=== PATIENT | female | born 1960 | race Caucasian/White ===

== ENCOUNTER 2017-06-08 06:37 | Day surgery (SDC) | payer OTHER ==
[~2017-06-08] VITALS: Ht 160 cm; Wt 82.5 kg
[~2017-06-08 06:37] MED LIST: CALCIUM 600 +1 EACH PO; DICYCLOMINE HCL20 MG PO; LEVOTHYROXINE112 MCG PO; MELATONIN1 MG PO; METOPROLOL SUCC25 MG PO; OSTEO BI-FLEX1 EAC2 PO; PROBIOTIC1 EAC1 PO; VITAMIN D31000 UNIT PO; [UNRECOGNIZED DRUG - OTHER] PO
--- NOTE | 2017-06-08 07:58 | NUR ---
06/08/17 0758 Gege Denise PT O2 SAT 98, TURN OFF O2
--- NOTE | 2017-06-08 10:13 | NUR ---
PT SUPPORTED BY HER . ROUTINE SCOPE, SEEMED TO DEAL WITH PREP APPROPRIATELY. SCHEDULING TIMES HAVE BEEN AN ISSUE TODAY. SURG STAFF IN TO TAKE PT. EXTENDED A BLESSING
--- NOTE | 2017-06-10 19:54 | OR ---
[facility] [address], [place] [address] Signed DATE OF PROCEDURE: 06/08/17 PREOPERATIVE DIAGNOSES Personal history of colonic polyps (2011). Diverticulosis. POSTOPERATIVE DIAGNOSES Minimal internal hemorrhoids. Minimal diverticulosis. PROCEDURE: Colonoscopy without biopsy. ESTIMATED BLOOD LOSS: None. INDICATIONS Jyoti is a 57-year-old female, who had colonic polyps removed back in 2011 at the age of 52. She also has some very early sigmoid diverticulosis. She returns now for followup colonoscopy. She has no lower GI complaints. There is no family history of colon cancer or polyps. In the office, I gave her a pamphlet on colonoscopy and we discussed the nature of the test along with the risks including, but not limited to gas bloating, crampy abdominal pain, bleeding perforation requiring surgery, and missed diagnosis. We also discussed the need for IV conscious sedation. She had expressed understanding and wished to proceed. PROCEDURE NOTE Jyoti was taken into our endoscopy suite and placed in the left lateral decubitus position. She was given divided doses of 7 mg of Versed and 150 mcg of Fentanyl. A digital rectal exam was performed and this was unremarkable. The adult colonoscope was introduced and advanced all around into the cecum under direct visualization of camera without difficulty. Her prep was quite ecellent. The scope was then slowly withdrawn. She had some very shallow tiny diverticula in the sigmoid colon. The rectum was unremarkable. Upon retroflexion of scope, she had small internal hemorrhoid columns. After this, the gas was suctioned out. The colonoscope removed. Jyoti tolerated the procedure quite well. RECOMMENDATIONS I will see Jyoti back in my office in 5 years for repeat colonoscopy. Electronically Signed By: CORRY EID MD 06/10/171953 PATIENT NAME: JYOTI SHEETS OPERATIVE REPORT DATE OF : 64 PHYSICIAN: CORRY EID MD REPORT #: [id number] REPORT IS CONFIDENTIAL AND NOT TO BE RELEASED WITHOUT AUTHORIZATION [address] [address] Signed MD DANNY Odonnell/Modl /[id number] cc: Lex Chavez DO Electronically Signed By: CORRY EID MD 06/10/17 1954 PATIENT NAME: JYOTI SHEETS OPERATIVE REPORT DATE OF : 64 PHYSICIAN: CORRY EID MD REPORT #: [id number] REPORT IS CONFIDENTIAL AND NOT TO BE RELEASED WITHOUT AUTHORIZATION
== END 2017-06-08 08:28 | disposition home or self-care (01) ==
LOC: DS 06:37 → OPS 06:37 → DS 06:45 → OPS 06:45
PROVIDERS: Colon & Rectal Surgery
PROC: 0DJD8ZZ Inspection of Lower Intestinal Tract, Via Natural or Artificial Opening Endoscopic (ICD-10-PCS; principal; 2017-06-08 06:45)
DX: K57.30 Diverticulosis of large intestine without perforation or abscess without bleeding (principal); K64.8 Other hemorrhoids; G47.33 Obstructive sleep apnea (adult) (pediatric); E78.5 Hyperlipidemia, unspecified; E66.9 Obesity, unspecified; E03.9 Hypothyroidism, unspecified; M19.90 Unspecified osteoarthritis, unspecified site; Z98.818 Other dental procedure status; Z86.010 Personal history of colon polyps; Z90.89 Acquired absence of other organs; Z87.891 Personal history of nicotine dependence; Z91.030 Bee allergy status; Z79.899 Other long term (current) drug therapy; Z68.32 Body mass index [BMI] 32.0-32.9, adult
CPT/HCPCS: 99152; 99153; J2250; J3010; J7120

== ENCOUNTER 2021-01-31 13:01 | Emergency (ER) | payer OTHER ==
[~2021-01-31] VITALS: Ht 160 cm; Wt 82.5 kg
[2021-01-31] MEDS ORDERED: HYDROCODON-ACE1 EA11 PO (14:20)
== END 2021-01-31 15:30 | disposition home or self-care (01) ==
LOC: ED 13:01
DX: S39.011A Strain of muscle, fascia and tendon of abdomen, initial encounter (principal); S29.9XXA Unspecified injury of thorax, initial encounter; W10.9XXA Fall (on) (from) unspecified stairs and steps, initial encounter; Z79.899 Other long term (current) drug therapy
CPT/HCPCS: 71101; 72170; 99283-25; A9270

== ENCOUNTER 2021-10-08 09:00 | Day surgery (SDC) | payer OTHER ==
[~2021-10-08] VITALS: Ht 160 cm; Wt 75.0 kg
--- NOTE | ~2021-10-08 | OR ---
[facility] [address] [place], [place] [address] Draft DATE OF OPERATION: 10/08/2021 SURGEON: Corry Eid MD PREOPERATIVE DIAGNOSES: 1. Chronic cholecystitis. 2. Biliary colic. POSTOPERATIVE DIAGNOSES: 1. Chronic cholecystitis. 2. Biliary colic. 3. Goiw-og-rcpvfpqg cholesterolosis. PROCEDURE: Laparoscopic cholecystectomy without intraoperative cholangiogram. ESTIMATED BLOOD LOSS: None. FINDINGS: We were unable to pass the cholangiocatheter through the valves of Heister. Therefore, the intraoperative cholangiogram was not performed. With the gallbladder open, she appears to have ddbi-qh-deonjjza cholesterolosis. INDICATIONS: Jyoti is a 61-year-old female, who was asked to see me for her gallbladder symptoms. Her daughter happens to be one of our operating room nurses. Her daughter had very similar symptoms and ended up with a low ejection fraction of the gallbladder. Her daughter had the gallbladder removed and she feels much better. Therefore, Jyoti recognized her symptoms as the same. She had been to her primary care provider. She was having the belt-like epigastric abdominal pain. Her ultrasound in April of this year was unremarkable. The HIDA scan showed her gallbladder ejection fraction low at 19%. She did not feel like drinking the Ensure reproduced her symptoms. However, she told me her symptoms are intermittent. That is actually quite common with the gallbladder. In the office, I gave her a booklet on the gallbladder. We discussed the location and function of the gallbladder in detail. We discussed laparoscopic versus open cholecystectomy. She understands expected intraop and postop course. There is risk including, but not limited to bleeding, infection, scarring, change in contour of the skin, damage to bowel, damage to main bile duct, incisional hernias and other unforeseen comorbidities. She had expressed understanding and wished to proceed. PATIENT NAME: JYOTI SHEETS OPERATIVE REPORT DATE OF : 64 REPORT #: [id number] PHYSICIAN: CORRY EID MD PCP: LISA SMITH MD REPORT IS CONFIDENTIAL AND NOT TO BE RELEASED WITHOUT AUTHORIZATION [facility] [address] [place], [place] [address] Draft PROCEDURE NOTE: I met with Jyoti and her daughter, Tammie in our preop area. After answering their questions, we took Jyoti back to the operating room. She was placed in the supine position under general endotracheal tube anesthesia. She was given preoperative antibiotics along with subcutaneous heparin. SCDs were utilized. She was then prepped and draped in the usual sterile fashion. All trocars were placed in their usual positions under direct visualization of the camera without difficulty. The gallbladder was grasped and elevated in the right upper quadrant. We took pictures throughout for photodocumentation. The triangle of Calot was dissected free and a clip was placed across the cystic artery and it was divided. We made two separate cuts through the cystic duct and we still could not get past the valves of Heister with our intraoperative cholangiocatheter. Given that, we abandoned our intraoperative cholangiogram. The cystic duct stump was secured with two clips across the cystic duct. The gallbladder was then removed from the gallbladder fossa with the help of the cautery and placed into an EndoCatch bag. We used our laparoscopic suturing device to pass 0-Vicryl suture on either side of the fascia of the subxiphoid trocar site. This was tied down to close this fascia primarily. After this, all the gas was allowed to escape and all the trocars were removed along with the gallbladder. Our circulating nurse opened the gallbladder on the back table for photodocumentation. She appears to have odhl-tg-xbodpfbk cholesterolosis. We closed the fascia of the supraumbilical trocar site with okvybq-qd-cfero and simple interrupted 0-Vicryl sutures. Local anesthetic was injected into all trocar sites. Each trocar site was irrigated and suctioned out until clear. The skin and dermis of each trocar site were closed with interrupted 3-0 subcuticular Monocryl sutures. Dry gauze and tape were applied all incisions. Jyoti was awakened from her anesthesia, extubated in the OR, and taken to recovery room in stable condition. Corry Eid MD ALB/MODL /[id number] cc: MD Corry Farfan MD PATIENT NAME: JYOTI SHEETS OPERATIVE REPORT DATE OF : 64 REPORT #: [id number] PHYSICIAN: CORRY EID MD PCP: LISA SMITH MD REPORT IS CONFIDENTIAL AND NOT TO BE RELEASED WITHOUT AUTHORIZATION [address] [address] Draft Copies: LISA SMITH MD, ANDREW L MD ~ PATIENT NAME: JYOTI SHEETS OPERATIVE REPORT DATE OF : 64 REPORT #: [id number] PHYSICIAN: CORRY EID MD PCP: LISA SMITH MD REPORT IS CONFIDENTIAL AND NOT TO BE RELEASED WITHOUT AUTHORIZATION
[~2021-10-08 09:00] MED LIST changes: +HYDROCODON-ACE1 EA11 PO; +LEVOTHYROXINE88 MC1 PO
[2021-10-08] MEDS ORDERED: CALCIUM500 MG PO (09:18)
[2021-10-08] MEDS ORDERED: ZINC30 MG PO (09:19)
--- NOTE | 2021-10-08 11:22 | NUR ---
10/08/21 [address] PATIENT ARRIVES TO PACU UNRESPONSIVE TO PAIN, ORAL AIRWAY IN PLACE. RESP EVEN AND UNLABORED, MASK AT 6 LITERS.
--- NOTE | 2021-10-08 12:01 | NUR ---
PT ARRIVES TO DS RM 2 FROM PACU AWAKE AND ALERT. PT RATES PAIN 2/10 AND STATES "SLIGHT" NAUSEA WHEN ASKED; PT MEDICATED, SEE EMAR. PT TOLERATES WATER AND IS PROVIDED JELLO AND CRACKERS. PT DAUGHTER IN ROOM AT BEDSIDE ON ARRIVAL. ELAINA NEFTALIGGER PLACED ON WARM AND WARM BLANKETS PROVIDED PER PT REQUEST. DC CRITERIA EXPLAINED TO PT, CALL LIGHT WITHIN REACH.
--- NOTE | 2021-10-08 13:03 | NUR ---
PT ICED WATER REFILLED AND PROVIDED LEMON LITTLE TRAVERSE SODA PER REQUEST. GRILLED CHEESE ORDERED FROM KITCHEN. ICE PACK REFILLED AND PLACED OVER LAP SITES. PT STATES PAIN IS TOLERABLE AND ENCOURAGED TO USE CALL LIGHT WITH URGE TO VOID/ANY NEEDS.
[2021-10-08] MEDS ORDERED: HYDROCODON-ACE1 EAC8 PO (13:25)
--- NOTE | 2021-10-08 13:47 | NUR ---
ICED WATER REFILLED. PT DENIES URGE TO VOID AT THIS TIME. DAUGHTER AT BEDSIDE WATCHING TV WITH PATIENT. CALL LIGHT WITHIN REACH.
--- NOTE | 2021-10-08 14:07 | NUR ---
PT USES CALL LIGHT TO ALERT DS STAFF OF URGE TO VOID. PT SITS AT SIDE OF BED PRIOR TO STANDING, DENIES DIZZINESS OR NAUSEA. PT AMBULATES TO BATHROOM STEADY WITH RN ASSIST. PT ABLE TO VOID APPROX 150 MLS YELLOW URINE WITH NO PROBLEMS. PT BACK TO DS RM 2 AND WOULD LIKE TO GET DRESSED TO DC HOME. DAUGHTER, [place] IN ROOM TO ASSIST PT IF NEEDED. PT ENCOURAGED TO OPEN CURTAIN WHEN READY.
--- NOTE | 2021-10-08 14:53 | NUR ---
1425: DC INSTRUCTIONS PRESENTED TO PT AND DAUGHTER AT BEDSIDE. PT VERBALIZES AN UNDERSTANDING OF INSTRUCTIONS. DAUGHTER HAS HARD COPY OF PAIN PRESCRIPTION TO DROP OFF AT PHARMACY. PT ABLE TO AMBULATE FROM STRETCHER TO WC WITH NO PROBLEMS. PT DC VIA WC FROM DS RM 2 TO HOME WITH DAUGHTER SAFE RIDE HOME.
== END 2021-10-08 14:34 | disposition home or self-care (01) ==
LOC: DS 09:00
PROVIDERS: ATTEND Colon & Rectal Surgery
PROC: 0FT44ZZ Resection of Gallbladder, Percutaneous Endoscopic Approach (ICD-10-PCS; principal; 2021-10-08 09:45)
DX: K80.44 Calculus of bile duct with chronic cholecystitis without obstruction (principal); E78.5 Hyperlipidemia, unspecified; E66.9 Obesity, unspecified; Z68.29 Body mass index [BMI] 29.0-29.9, adult; Z87.891 Personal history of nicotine dependence; E03.9 Hypothyroidism, unspecified; Z90.5 Acquired absence of kidney
CPT/HCPCS: 00790; J0690; J1100; J1644; J1885; J2001; J2250; J2405; J2704; J3010; J7121

== ENCOUNTER 2022-11-10 07:57 | Day surgery (SDC) | payer OTHER ==
[~2022-11-10] VITALS: Ht 160 cm; Wt 70.3 kg
[~2022-11-10 07:57] MED LIST changes: +CALCIUM500 MG PO; +FIBER-STAT15 GM/30 M PO; +HYDROCODON-ACE1 EAC8 PO; +VITAMIN C500 M1 PO; +ZINC30 MG PO
[2022-11-10] MEDS ORDERED: PROBIOTIC1 EAC5 PO (08:17)
--- NOTE | 2022-11-10 10:17 | NUR ---
11/10/22 [address] PATIENT ARRIVES TO PACU RESTING WITH EYES CLOSED. OPENS EYES WITH VERBAL STIMULI, THEN BACK TO SLEEP. RESP EVEN AND UNLABORED, NC AT 2 LITERS. 1010 PATIENT SLEEPING. AWAKENS WITH VERBAL STIMULI. BACK TO SLEEP WHEN NOT STIMULATED. RESP EVEN AND UNLABORED, OXYGEN OFF. ROOM AIR SATS >97%. PATIENT PASSING GAS.
--- NOTE | 2022-11-11 06:35 | OR ---
[facility] [address] [place], [place] [address] Signed DATE OF OPERATION: 11/10/2022 SURGEON: Corry Eid MD PREOPERATIVE DIAGNOSES: 1. Personal history of colonic polyps in 2012 at age 52. 2. Diverticulosis. 3. Internal hemorrhoids. 4. Irritable bowel syndrome with diarrhea. POSTOPERATIVE DIAGNOSES: 1. Tortuous rectosigmoid junction. 2. Minimal sigmoid diverticulosis. 3. Minimal internal hemorrhoids. PROCEDURE: Colonoscopy without biopsy. ESTIMATED BLOOD LOSS: None. INDICATIONS: Jyoti is a 62-year-old female, asked to see me for a followup colonoscopy. She said her brother had some type of defect in his colon that finally showed up at age 55 back in 2007. It apparently was shaped like a football. Dr. Wei had to perform a colectomy to correct it. She seems to have done well since then. She is not sure of any more details than that. Even her brother is not sure. Jyoti had adenomatous polyps back in 2011 at the age of 52. She has also had hyperplastic polyps and a small amount of diverticulosis. She is known to have some internal hemorrhoids. She comes every five years. She returned in 2017 at age of 57 and again had some internal hemorrhoids with her diverticulosis. No polyps at that time. She has always done well with Versed and fentanyl in the past. Again, she stays on the five year plan. She also has a long history of irritable bowel syndrome with diarrhea. She had been asked to come back and see me for followup. In the meantime, she had a robotic assisted laparoscopic right partial nephrectomy at our [facility] back in 2019. In the office, I had given her a pamphlet on colonoscopy. We reviewed the nature of the test. There is risk including, but not limited to gas bloating, crampy abdominal pain, bleeding, perforation requiring surgery, and missed diagnosis. We also reviewed the need for the IV conscious sedation. She had expressed understanding and wished to proceed. Electronically Signed By: CORRY EID MD 11/11/22 0635 PATIENT NAME: JYOTI SHEETS OPERATIVE REPORT DATE OF : 64 REPORT #: [id number] PHYSICIAN: CORRY EID MD PCP: LISA SMITH MD REPORT IS CONFIDENTIAL AND NOT TO BE RELEASED WITHOUT AUTHORIZATION [facility] [address] [place] [id number] Signed DESCRIPTION OF PROCEDURE: Jyoti was taken into our endoscopy suite and placed in the left lateral decubitus position. She was given 9 mg of Versed and 150 mcg of fentanyl to cover the case. We found that she had a very tortuous angulated rectosigmoid junction on this occasion. She was quite diaphoretic and bradycardic on several occasions as we tried to manipulate the camera through this area. We even made the decision to try to find an anesthesia provider to help with propofol infusion. During that time, we were able to finally get the camera under direct visualization around the rectosigmoid junction and up into the sigmoid colon. After that, the camera passed quite nicely. Her prep was quite excellent. We could easily see the appendiceal orifice and the ileocecal valve. The scope was then slowly withdrawn. We took pictures throughout for photodocumentation. There were no polyps. Again, she has diverticulosis in the sigmoid colon. They were small in size, few in number, and scattered about. As we came through the rectosigmoid junction, again we can see as angulated. We made our way into the rectum, which was unremarkable. Upon retroflexion of the scope, we can see her minimal internal hemorrhoids. After this, the gas was suctioned out and the colonoscope removed. Overall, Jyoti tolerated the procedure once we got through the rectosigmoid junction. RECOMMENDATIONS: Jyoti can follow up in 5 years for repeat colonoscopy. She is really in need of monitored anesthesia care with propofol given her very difficult rectosigmoid junction and the fact that she was diaphoretic and bradycardic. One will have to be very careful in this area as Jyoti gets older and her colon gets thinner. She could always consider stool studies in the future along with a barium enema as well. Corry Eid MD ALB/MODL /[id number] cc: MD Corry Farfan MD Electronically Signed By: CORRY EID MD 11/11/22 0635 PATIENT NAME: JYOTI SHEETS OPERATIVE REPORT DATE OF : 64 REPORT #: [id number] PHYSICIAN: CORRY EID MD PCP: LISA SMITH MD REPORT IS CONFIDENTIAL AND NOT TO BE RELEASED WITHOUT AUTHORIZATION [address] [address] Signed Copies: LISA SMITH MD, ANDREW L MD ~ Electronically Signed By: CORRY EID MD 11/11/22 0635 PATIENT NAME: JYOTI SHEETS OPERATIVE REPORT DATE OF : 64 REPORT #: [id number] PHYSICIAN: CORRY EID MD PCP: LISA SMITH MD REPORT IS CONFIDENTIAL AND NOT TO BE RELEASED WITHOUT AUTHORIZATION
== END 2022-11-10 11:00 | disposition home or self-care (01) ==
LOC: DS 07:57 → OPS 07:57 → DS 09:45 → OPS 11:00
PROVIDERS: ATTEND Colon & Rectal Surgery
PROC: 0DJD8ZZ Inspection of Lower Intestinal Tract, Via Natural or Artificial Opening Endoscopic (ICD-10-PCS; principal; 2022-11-10 09:45)
DX: Z12.11 Encounter for screening for malignant neoplasm of colon (principal); K57.30 Diverticulosis of large intestine without perforation or abscess without bleeding; K64.0 First degree hemorrhoids; K58.9 Irritable bowel syndrome, unspecified; F12.10 Cannabis abuse, uncomplicated; E78.5 Hyperlipidemia, unspecified; E03.9 Hypothyroidism, unspecified; Z86.010 Personal history of colon polyps; Z87.891 Personal history of nicotine dependence; Z79.899 Other long term (current) drug therapy
CPT/HCPCS: G0121; 99153; G0500; J0690; J2250; J3010; J7121

== ENCOUNTER 2022-11-25 07:10 | Day surgery (SDC) | payer OTHER ==
[~2022-11-25] VITALS: Ht 160 cm; Wt 68.2 kg
[~2022-11-25 07:10] MED LIST changes: +PROBIOTIC1 EAC5 PO
[2022-11-25] MEDS ORDERED: TYLENOL325 M1 PO (07:24)
--- NOTE | 2022-11-25 10:28 | NUR ---
PT ALERT, ORIENTED AND SUPPORTED BY HER FIOR. PT IS SOMEWHAT ANXIOUS. ANESTHESIA IS A PROBLEM FOR PT. GAVE ENCOURAGEMENT, FIOR WILL REMAIN FOR DC. PT REQUESTED PRAYER, WILL FOLLOW
[2022-11-25] MEDS ORDERED: TRAMADOL HCL50 MG PO (10:35)
--- NOTE | 2022-11-25 10:37 | NUR ---
11/25/22 Chioma Muse2- PT ARRIVES TO PACU AWAKE AND TALKING. PT REPORTS NO PAIN OR NAUSEA. RESP EVEN AND UNLABORED. OXYGEN SAT MID TO HIGH 90'S ON RA. PT'S RIGHT HAND/ WRIST ELEVATED AND ICE PACK APPLIED WITH BARRIER BETWEEN SKIN AND ICE PACK.
--- NOTE | 2022-11-28 08:42 | OR ---
[facility] [address] [place], [place] [address] Signed DATE OF OPERATION: 11/25/2022 SURGEON: Agustina Self MD PREOPERATIVE DIAGNOSIS: Carpal tunnel syndrome, right. POSTOPERATIVE DIAGNOSIS: Carpal tunnel syndrome, right. PROCEDURE PERFORMED: Carpal tunnel release, right. RECORD SYSTEMS ANALYST: None. ANESTHESIA: Vandana block. TOURNIQUET TIME: 14 minutes. BRIEF HISTORY: Jyoti is a 62-year-old female with progressive worsening of pain and numbness in her hand. Nerve conduction studies were consistent with moderate carpal tunnel. Risks and benefits of operative treatment were discussed with her and she elected to proceed. PROCEDURE IN DETAIL: Once consent was obtained, she was taken to the operating room. After adequate anesthesia, she was left on day surgery bed with the hand table. The arm was prepped and draped in a standard sterile fashion. The carpal tunnel was approached through a 1.5 cm incision in the distal wrist crease. This was carried through the skin and subcutaneous tissue. The palmaris longus was identified and was quite thin. It was then mobilized. The transverse carpal ligament was identified under loupe magnification and was released proximally a cm and distally to the distal extent under direct vision. The canal was then palpated using a Nemacolin and found to be completely released. The wound was copiously irrigated with normal saline, closed with 3-0 nylon and injected with 7 mL of plain 0.25% Marcaine. The wound was then dressed with bacitracin, Adaptic 4 x 8s, and gauze. She tolerated the procedure well. All sponge, needle, and instrument counts were correct. Electronically Signed By: AGUSTINA SELF MD 11/28/22 0842 PATIENT NAME: JYOTI SHEETS OPERATIVE REPORT DATE OF : 64 REPORT #: [id number] PHYSICIAN: AGUSTINA SELF MD PCP: LISA SMITH MD REPORT IS CONFIDENTIAL AND NOT TO BE RELEASED WITHOUT AUTHORIZATION [address] [address] Signed Agustina Self MD BA/PEYTONL /[id number] Copies: ~ Electronically Signed By: AGUSTINA SELF MD 11/28/22 0842 PATIENT NAME: JYOTI SHEETS OPERATIVE REPORT DATE OF : 64 REPORT #: [id number] PHYSICIAN: AGUSTINA SELF MD PCP: LISA SMITH MD REPORT IS CONFIDENTIAL AND NOT TO BE RELEASED WITHOUT AUTHORIZATION
== END 2022-11-25 11:24 | disposition home or self-care (01) ==
LOC: DS 07:10
PROVIDERS: ATTEND Specialist
PROC: 01N50ZZ Release Median Nerve, Open Approach (ICD-10-PCS; principal; 2022-11-25 11:15)
DX: G56.03 Carpal tunnel syndrome, bilateral upper limbs (principal)
CPT/HCPCS: J0690; J1885; J2001; J2405; J2704